=== PATIENT | male | born 1955 | race African-American/Black ===

== ENCOUNTER 2017-07-16 07:22 | Emergency (ER) | payer MEDICAID ==
[~2017-07-16] VITALS: Ht 175.3 cm; Wt 77.1 kg
[2017-07-16] MEDS ORDERED: ZITHROMAX250 MG ORAL (07:59)
[2017-07-16] MEDS ORDERED: IBUPROFEN800 MG ORAL (07:59)
[2017-07-16] MEDS ORDERED: ZOFRAN ODT4 MG ORAL (07:59)
[2017-07-16 08:05] VITALS: BP 126/84
--- NOTE | 2017-07-16 08:33 | Emergency Room Report ---
History of Present Illness General Chief Complaint: Flu Like Symptoms Source: Patient, Family Member Present Illness HPI 61-year-old male sense with fianc for 3-4 days of intermittent frontal headache , body aches, measured fever of 100+ at home, and cough that is dry. Patient has history of asthma however has not been using home nebulizer machine to treat symptomatic cough. Patient took ibuprofen 800 mg one time over the last 4 days with relief of headache. Patient also endorsing loss of appetite Patient did receive influenza vaccine this year. Sick contacts at home. Allergies: Coded Allergies: No Known Allergies (Unverified , 07/16/17) Patient History Past Medical History: asthma Past Surgical History: none Pertinent Family History: none Social History: Denies: smoking, alcohol use, drug use Immunizations: UTD Reviewed Nursing Documentation: PMH: Agreed, PSxH: Agreed Nursing Documentation-PMH Hx Asthma: Yes Review of Systems All Other Systems: negative except mentioned in HPI Physical Exam Vital Signs Date Time Temp Pulse Resp B/P (MAP) Pulse Ox O2 Delivery O2 Flow Rate FiO2 07/16/17 07:31 98.6 101 18 126/84 95 Room Air Sp02 EP Interpretation: reviewed, normal General Appearance: normal inspection, well appearing, no apparent distress, alert, GCS 15, non-toxic, other - well appearing, conversant, pleasant Head: normocephalic, atraumatic Eyes: bilateral eye PERRL, bilateral eye EOMI ENT: normal ENT inspection, hearing grossly normal, normal pharynx, no angioedema, normal voice, TMs + canals normal, uvula midline, moist mucus membranes Neck: normal inspection, full range of motion, supple, thyroid normal, no meningismus, no bony tend Respiratory: normal inspection, lungs clear, normal breath sounds, no rhonchi, no respiratory distress, no retraction, no accessory muscle use, no wheezing, speaking full sentences Cardiovascular #1: regular rate, rhythm, no edema, no JVD, normal capillary refill Gastrointestinal: normal inspection, normal bowel sounds, non tender, soft, no mass, no peritonitis, non-distended, no guarding, no hernia, no pulsatile mass Genitourinary: no CVA tenderness Musculoskeletal: normal inspection, back normal, normal range of motion, no calf tenderness, pelvis stable, Jeri's Sign negative Neurologic: normal inspection, alert, oriented x3, responsive, pattern shop supervisor III-XII nml as tested, motor strength/tone normal, cerebellar normal, normal gait, speech normal Psychiatric: normal inspection, judgement/insight normal, mood/affect normal, no suicidal/homicidal ideation, no delusions Skin: normal inspection, normal color, no rash Lymphatic: normal inspection, no adenopathy Medical Decision Making Diagnostic Impression: Primary Impression: Influenza-like illness Additional Impression: Atypical pneumonia ER Course Patient with signs and symptoms of possible influenza given headache, body aches and loss of appetite. Vital signs are stable, afebrile Unfortunately, patient out of the window for Tamiflu to be effective: This was discussed with patient and his fiance. Patient did not have any wheezing on exam, is not tachypneic or hypoxic, is not in asthma exacerbation currently however I am concerned with fever, chills and cough at home. As such we'll treat as atypical pneumonia with Z-Suraj Also recommended Motrin up to 3 times a day for headache and Zofran for nausea and for appetite stimulation. Recommended close primary care followup ER course: Patient has remained stable during ED stay. Disposition: Patient is to be discharged to home. Prescriptions given are motrin, Z-pack, zofran Patient is instructed to follow up with their primary care doctor within 5 days. Strict return precautions discussed with patient such as fever, chills, worsening/severe pain, nausea, vomiting, which may indicate severe illness. Patient verbalizes understanding and agrees with plan. Please note that this Emergency Department Report was dictated using [employer] carpenter technology software, occasionally this can lead to erroneous entry secondary to interpretation by the dictation equipment Last Vital Signs Date Time Temp Pulse Resp B/P (MAP) Pulse Ox O2 Delivery O2 Flow Rate FiO2 07/16/17 08:05 98.6 18 126/84 95 Room Air 07/16/17 07:45 101 Status: improved Disposition: HOME, SELF-CARE Condition: Improved Scripts Ondansetron Odt* (ZOFRAN ODT*) 4 Mg Tab.rapdis 4 MG ORAL TID Y for decreased appetite, nausea for 5 Days, #15 TAB 0 Refills Prov: ADRIEL BORRERO M.D. 07/16/17 Ibuprofen* (MOTRIN*) 800 Mg Tablet 800 MG ORAL THREE TIMES A DAY for headache for 7 Days, #30 TAB 0 Refills Prov: ADRIEL BORRERO M.D. 07/16/17 Azithromycin* (ZITHROMAX*) 250 Mg Tablet 250 MG ORAL DAILY, #6 TAB 0 Refills Take two tables once daily for 1 day, then one tablet once daily for 4 days. Prov: ADRIEL BORRERO M.D. 07/16/17 Patient Instructions: Influenza, Adult, [id number], Community-Acquired Pneumonia, Adult Additional Instructions: - Take ALL of Azithromycin Z-pack for ?atypical pnuemonia - Take zofran to stimulate appetite, and for nausea - Take 800mg motrin every 8 hours with food for headache Return to ER for worsening headache with vomiting ADRIEL BORRERO M.D. Jul 16, 2017 08:33
== END 2017-07-16 08:05 | disposition home or self-care (01) ==
LOC: EMR 07:50
DX: J11.1 Influenza due to unidentified influenza virus with other respiratory manifestations (principal); J18.9 Pneumonia, unspecified organism; J45.909 Unspecified asthma, uncomplicated
CPT/HCPCS: 99284

== ENCOUNTER 2017-07-18 22:39 | Emergency (ER) | payer MEDICAID ==
[~2017-07-18] VITALS: Ht 175.3 cm; Wt 77.1 kg
[~2017-07-18 22:39] MED LIST: IBUPROFEN800 MG ORAL; ZITHROMAX250 MG ORAL; ZOFRAN ODT4 MG ORAL
[2017-07-18 23:00] VITALS: BP 132/88
[2017-07-18] MEDS ORDERED: Sodium Chloride 500ML 500 ML IV ONE (23:00)
[2017-07-18 23:37] LABS: HEMOGLOBIN 12.9 G/DL (14.2-18.0); MEAN CORPUSCULAR VOLUME 80 FL (80-99); PLATELET COUNT 212 K/UL (150-450); RED BLOOD COUNT 4.75 M/UL (4.70-6.10); RED CELL DISTRIBUTION WIDTH 12.2 % (11.6-14.8); WHITE BLOOD COUNT 2.7 K/UL (4.8-10.8)
[2017-07-18 23:44] LABS: ANION GAP 4 mmol/L (5-15); BLOOD UREA NITROGEN 9 mg/dL (7-18); CALCIUM 8.7 MG/DL (8.5-10.1); CARBON DIOXIDE 31 MMOL/L (21-32); CHLORIDE 105 MMOL/L (98-107); POTASSIUM 4.1 MMOL/L (3.5-5.1); SODIUM 140 MMOL/L (136-145)
[2017-07-19 00:15] LABS: ALANINE AMINOTRANSFERASE 48 U/L (12-78); ALBUMIN 3.6 G/DL (3.4-5.0); ALKALINE PHOSPHATASE 82 U/L (46-116); ASPARTATE AMINO TRANSFERASE 31 U/L (15-37); BILIRUBIN,TOTAL 0.3 MG/DL (0.2-1.0); CKMB 0.5 NG/ML (0.0-3.6); CREATINE KINASE 204 U/L (26-308)
[2017-07-19] MEDS ORDERED: GUAIFENESIN-CO118 ML ORAL (01:28)
[2017-07-19 01:30] VITALS: BP 126/87
[2017-07-19] MEDS ORDERED: Ketorolac 30mg Inj IV ONE (01:30)
[2017-07-19 01:45] VITALS: BP 126/87
--- NOTE | 2017-07-19 02:13 | Emergency Room Report ---
History of Present Illness General Chief Complaint: Flu Like Symptoms Source: Patient Present Illness HPI This is a 61-year-old male who presented after increased cough. Patient had recently been seen and been diagnosed with atypical pneumonia. And started on azithromycin and and anti-inflammatory medications. The patient reported having increased muscle aches. This reports having prior history of tuberculosis. He denies any hemoptysis. He reports having intermittent productive cough Allergies: Coded Allergies: No Known Allergies (Unverified , 07/16/17) Patient History Past Medical History: see triage record Reviewed Nursing Documentation: PMH: Agreed, PSxH: Agreed Nursing Documentation-PMH Hx Asthma: Yes Review of Systems All Other Systems: negative except mentioned in HPI Physical Exam Vital Signs Date Time Temp Pulse Resp B/P (MAP) Pulse Ox O2 Delivery O2 Flow Rate FiO2 07/18/17 22:42 99.3 97 18 132/88 98 Room Air Sp02 EP Interpretation: reviewed, normal General Appearance: normal inspection, well appearing, no apparent distress, alert, GCS 15 Head: atraumatic ENT: normal ENT inspection, hearing grossly normal, normal voice Neck: normal inspection, full range of motion, supple, no bony tend Respiratory: normal inspection, no respiratory distress, no retraction, rhonchi Cardiovascular #1: regular rate, rhythm, no edema Gastrointestinal: normal inspection, normal bowel sounds, non tender, soft, no guarding, no hernia Genitourinary: no CVA tenderness Musculoskeletal: normal range of motion Neurologic: oriented x3, responsive, new grad rn III-XII nml as tested, speech normal Psychiatric: normal inspection, judgement/insight normal, mood/affect normal Skin: normal inspection, normal color, no rash Medical Decision Making Diagnostic Impression: Primary Impression: Atypical pneumonia ER Course Patient presented for cough. Differential diagnosis included but was not limited to bronchitis, pneumonia, pulmonary embolism, pericarditis, asthma, foreign body.Because of complexity of patient's case laboratory testing and imaging studies were ordered. The EKG interpreted by me showed normal sinus rhythm with a rate of [address] or T wave changes. Laboratory studies showed low white blood count. Troponin was negative. The patient was noted to have normal vital signs as well as normal oxygen saturation. In no respiratory distress. The patient is advised to follow up with primary care doctor in 1-2 days. Patient is advised to return if any worsening condition or if any changes in status that are concerning. This report is dictated with [employer] pipeline dispatch operator software which may occasionally lead to discrepancies related to use of this software. Last Vital Signs Date Time Temp Pulse Resp B/P (MAP) Pulse Ox O2 Delivery O2 Flow Rate FiO2 07/19/17 01:45 99.3 91 18 126/87 98 Room Air Status: improved Disposition: HOME, SELF-CARE Condition: Stable Scripts Guaifenesin/Codeine Phosphate (GUAIFENESIN-CODEINE LIQUID) 118 Ml Liquid 5 ML ORAL Q6H Y for For Cough, #118 ML 0 Refills Prov: Kaiden Julian 07/19/17 Referrals: [facility],REFERRING (PCP) Patient Instructions: Pneumonitis Kaiden Julian Jul 19, 2017 02:13
--- NOTE | 2017-07-19 12:11 | Diagnostic Imaging Report ---
Indication: Shortness of breath Technique: One view of the chest Comparison: No Findings: There is parenchymal scarring, volume loss and pleural thickening in the right lung apex. The remainder of the lungs and pleural spaces are clear. The heart size is normal. Impression: Pleural and parenchymal scarring at the right lung apex. Possibility of underlying mass cannot be completely excluded, however, in comparison with prior studies or follow-up CT should be considered No acute process otherwise Findings discussed by phone with Dr. Sánchez at the time of interpretation
--- NOTE | 2017-07-27 18:46 | Cardiology Report ---
APPROVED REPORT EKG Measurement Heart [id number] Normal sinus rhythm Normal ECG
== END 2017-07-19 01:47 | disposition home or self-care (01) ==
LOC: EMR 23:05
DX: J18.9 Pneumonia, unspecified organism (principal); J45.909 Unspecified asthma, uncomplicated
CPT/HCPCS: 36415; 71045; 80053; 82550; 82553; 83880; 84484; 85025; 86710; 93005; 96361; 96374; 99284; J1885; J7040